=== PATIENT | male | born 1970 | race Caucasian/White ===

== ENCOUNTER 2021-04-07 21:39 | Emergency (ER) | payer MEDICAID, MEDICARE ==
[2021-04-07] MEDS ORDERED: diphenhydrAMINE 50 MG/ML SDV IM ONE (21:40)
[2021-04-07] MEDS ORDERED: methylPREDNISolone Sodium Succinate 125 MG/2 ML SDV IM ONE (21:40)
--- NOTE | 2021-04-07 21:52 | EDM.PDOC ---
ED HPI GENERAL MEDICAL PROBLEM - General Stated Complaint: MEDICAL [facility] Time Seen by Provider: 04/07/21 21:40 Source of Information: Reports: Patient History Limitations: Reports: No Limitations - History of Present Illness INITIAL COMMENTS - FREE TEXT/NARRATIVE: Ruddy is a 50-year-old male presenting to the ED via [facility] for anaphylactic reaction to wasp sting. Patient was in his usual state of health when he was cleaning a pontoon boat that was quite dirty and full of leaves. He somehow managed to get into a swarm of wasps which stung him repeatedly. He reports that he has had 3 stings on the right forearm and one sting on the left elbow. He has previously been stung by wasps and bees and reports no difficulty, however, his dad is deathly allergic to stings. The patient started to experience some shortness of breath so he took his dad's EpiPen and utilized that prior to calling EMS. Upon arrival, the patient was reportedly wheezing and in route was given an additional dose of epinephrine 0.5 mg subcu. Upon arrival to the ED, the patient is breathing comfortably although tachycardic. He has significant urticaria on both forearms and swelling around the sting sites. He denies any difficulty breathing or swallowing. He has mildly anxious likely due to the epinephrine. - Related Data Allergies Allergy/AdvReac Type Severity Reaction Status Date / Time paliperidone Allergy Anxiety Verified 04/07/21 22:02 *cholesterol med Allergy Pain Uncoded 04/07/21 22:01 Home Meds: Home Meds Paliperidone [Invega] 1 tab PO DAILY 04/07/21 [History] EPINEPHrine [Epipen] 0.3 mg IM ASDIRECTED PRN #1 pen 04/08/21 [Rx] ED ROS ALLERGIC REACTION - Review of Systems Review Of Systems: See Below Constitutional: Reports: No Symptoms HEENT: Reports: No Symptoms Respiratory: Reports: Shortness of Breath, Wheezing (Initially but has improved) Cardiovascular: Reports: No Symptoms Endocrine: Reports: No Symptoms GI/Abdominal: Reports: No Symptoms : Reports: No Symptoms Musculoskeletal: Reports: Arm Pain Skin: Reports: Erythema (Flushing of the face and neck, chest and back), Lumps (Swelling of the left elbow secondary to the sting. Swelling in the right forearm secondary to 3 stings.), Urticaria (Urticaria on both forearms) Neurological: Reports: No Symptoms Psychiatric: Reports: Anxiety Hematologic/Lymphatic: Reports: No Symptoms Immunologic: Reports: Anaphylaxis (To wasp stings) ED EXAM GENERAL NO PERIP PULSE - Physical Exam Exam: See Below Exam Limited By: No Limitations General Appearance: Alert, No Apparent Distress, Anxious Eye Exam: Bilateral Eye: EOMI, PERRL Nose: Normal Inspection, Normal Mucosa Throat/Mouth: Normal Inspection, Normal Lips, Normal Oropharynx, Normal Voice, No Airway Compromise Head: Atraumatic, Normocephalic Neck: Normal Inspection, Supple, Non-Tender, Full Range of Motion Respiratory/Chest: No Respiratory Distress, Lungs Clear, Wheezing (Expiratory wheezes consistent with a smoker. No inspiratory wheezes and good air movement.) Cardiovascular: Normal Peripheral Pulses, Regular Rate, Rhythm, No Murmur, Tachycardia GI/Abdominal: Normal Bowel Sounds, Soft, Non-Tender Back Exam: Normal Inspection, Full Range of Motion Extremities: Normal Range of Motion, Normal Capillary Refill, Increased Warmth, Redness (Redness and swelling over the vulvar right forearm and dorsal left elbow secondary to stings) Neurological: Alert, Oriented, Normal Cognition, No Motor/Sensory Deficits Psychiatric: Normal Affect, Anxious Skin Exam: Erythema (Increased flushing of the face, neck, back and chest), Increased Warmth, Wound/Incision (3 stings on the right volar forearm that show induration, redness, tenderness to palpation. Sting on the dorsal left elbow also showing induration, redness, and tenderness.) Lymphatic: No Adenopathy Course - Vital Signs Last Recorded V/S: Last Vital Signs Temp 36.6 C 04/07/21 22:12 Pulse 84 04/08/21 00:05 Resp 17 04/08/21 00:05 BP 118/68 04/08/21 00:05 Pulse Ox 97 04/08/21 00:05 - Orders/Labs/Meds Meds: Medications Discontinued Medications Generic Name Dose Route Start Last Admin Trade Name Freq PRN Reason Stop Dose Admin Diphenhydramine HCl 50 mg 04/07/21 21:40 04/07/21 22:09 Diphenhydramine 50 Mg/Ml Sdv IM 04/07/21 21:41 50 mg ONETIME ONE Administration Methylprednisolone Sodium Succinate 125 mg 04/07/21 21:40 07/16/21 22:09 Methylprednisolone Sodium Succinate 125 Mg/2 Ml Sdv IM 04/07/21 21:41 125 mg ONETIME ONE Administration - Re-Assessments/Exams Free Text/Narrative Re-Assessment/Exam: 04/07/21 21:53 Ruddy is improved since arrival to the ED. There is no longer any inspiratory wheezing that was reported by EMS. He does have urticaria on the bilateral upper extremities. He is not experiencing any difficulty with breathing or swallowing. We will give him Solu-Medrol 125 mg IM and diphenhydramine 50 mg IM continue to observe him for any relapse. Because he received epinephrine 0.5 mg in route, we will need to watch him for 3 hours for the likelihood of rebound. Patient was informed. 04/08/21 00:10 the patient was observed for 3 hours without any recurrence of his symptoms. At this time, I believe he suitable for discharge home in satisfactory condition. Indications return to the ED were discussed. Departure - Departure Time of Disposition: 00:11 Disposition: Home, Self-Care 01 Clinical Impression: Anaphylactic reaction to bee sting Qualifiers: Encounter type: initial encounter Injury intent: accidental or unintentional Qualified Code(s): T63.441A - Toxic effect of venom of bees, accidental (unintentional), initial encounter - Discharge Information Instructions: Bee, Wasp, or Hornet Sting, Adult, Anaphylactic Reaction, Adult, [id number] Care Plan Goals: Due to your recent response to bee stings, you have not qualified for your own EpiPen. I have included prescription for this for you to fill in the morning at your pharmacy. Sepsis Event Note (ED) - Focused Exam Vital Signs: Vital Signs Temp Pulse Resp BP Pulse Ox 04/08/21 00:05 84 17 118/68 97 04/07/21 23:18 87 20 112/74 96 04/07/21 22:41 102 H 18 110/73 100 04/07/21 22:12 36.6 C 93 17 114/73 93 L 04/07/21 21:44 36.6 C 100 13 116/60 93 L - Problem List & Annotations (1) Anaphylactic reaction to bee sting SNOMED Code(s): 541688215 Code(s): T63.441A - TOXIC EFFECT OF VENOM OF BEES, ACCIDENTAL, INIT Status: Acute Priority: High Current Visit: Yes Qualifiers: Encounter type: initial encounter Injury intent: accidental or unintentio nal Qualified Code(s): T63.441A - Toxic effect of venom of bees, accidental (unintentional), initial encounter - Problem List Review Problem List Initiated/Reviewed/Updated: Yes
== END 2021-04-08 00:54 | disposition home or self-care (01) ==
LOC: JP.ED 21:39
DX: T63.441A Toxic effect of venom of bees, accidental (unintentional), initial encounter (principal); Z88.5 Allergy status to narcotic agent
CPT/HCPCS: 96372; 99283; J1200; J2930